=== PATIENT | female | born 1950 | race Caucasian/White ===

== ENCOUNTER 2018-01-10 05:32 | Inpatient (IN) | payer MEDICARE, BC ==
[2018-01-10] MEDS: CEFAZOLIN 2 GM/50 ML (PMX) 50 ML IVPB (06:00)
[2018-01-10] MEDS: LACTATED RINGER'S 1,000 ML IV* (06:00)
[2018-01-10] MEDS ORDERED: POLYMYXIN/BACITRACIN 1L IRRIG (06:47)
[2018-01-10] MEDS ORDERED: POLYMYXIN B 500000 UNIT INJ (07:14)
[2018-01-10] MEDS ORDERED: PROPOFOL 20 ML (07:22)
[2018-01-10] MEDS ORDERED: MIDAZOLAM 1 MG/ML 2 ML INJ (07:31)
[2018-01-10] MEDS ORDERED: FENTAnyl 50 MCG/ML VIAL (07:31)
[2018-01-10] MEDS ORDERED: LIDOCAINE 1% (MDV) 20 ML INJ (07:31)
[2018-01-10] MEDS ORDERED: BUPIVACAINE 0.75%/DEXT (SPINAL) 2 ML INJ (07:31)
[2018-01-10] MEDS ORDERED: PHENYLephrine (100 MCG/ML) 10ML SYG (07:49)
[2018-01-10] MEDS ORDERED: CEFAZOLIN 1 GM INJ (07:54)
[2018-01-10] MEDS: TRANEXAMIC ACID 1,000 MG in NS 100 ML PRE-OP X1 IVPB (08:06)
[2018-01-10] MEDS: POLYMYXIN B 500000 UNIT INJ IRR (08:21)
[2018-01-10] MEDS: BACITRACIN 50000 UNITS INJ IRR (08:21)
[2018-01-10] MEDS: POLYMYXIN/BACITRACIN 1L IRRIG IRR (08:21)
[2018-01-10] MEDS ORDERED: ONDANSETRON 4 MG INJ (09:02)
[2018-01-10] MEDS ORDERED: FAMOTIDINE 20 MG INJ (09:02)
[2018-01-10] MEDS: TRANEXAMIC ACID 1,000 MG in NS 100 ML INTRA-OP X1 IVPB (09:20)
[2018-01-10] MEDS ORDERED: oxyCODONE 5 MG TAB PO (09:30)
[2018-01-10] MEDS ORDERED: HYDROmorphONE 1 MG/5 ML IV SYRINGE IV (09:30)
[2018-01-10] MEDS ORDERED: NA PHOSPHATE/BIPHOS 133 ML ENEMA PR (09:30)
[2018-01-10] MEDS ORDERED: LABETALOL HCL 20MG INJ IV (09:30)
[2018-01-10] MEDS ORDERED: NALOXONE (0.4 MG/ML) INJ IV (09:30)
[2018-01-10] MEDS ORDERED: DIPHENHYDRAMINE 50 MG INJ IV (09:30)
[2018-01-10] MEDS ORDERED: MAGNESIUM HYDROXIDE 30ML CUP PO (09:30)
[2018-01-10] MEDS ORDERED: SENNA/DOCUSATE NA (8.6MG/50MG) TAB PO (09:30)
[2018-01-10] MEDS ORDERED: ZOLPIDEM 5 MG TAB PO (09:30)
[2018-01-10] MEDS ORDERED: NACL 0.9% 3 ML SYG IV (09:30)
[2018-01-10] MEDS ORDERED: BETHANECHOL 25 MG TAB PO (09:30)
[2018-01-10] MEDS ORDERED: hydrALAzine 20 MG INJ IV (09:30)
[2018-01-10] MEDS ORDERED: KETOROLAC 15 MG INJ IV ×2 (09:30→10:00)
[2018-01-10] MEDS ORDERED: ONDANSETRON 4 MG INJ IV (09:30)
[2018-01-10] MEDS ORDERED: BISACODYL 10 MG SUPP PR (09:30)
[2018-01-10] MEDS: ONDANSETRON 4 MG INJ IV ×3 (09:46→20:55)
[2018-01-10] MEDS: DOCUSATE SODIUM 100 MG CAP PO (09:48)
[2018-01-10] MEDS: SOD CHLORIDE 0.9% 1,000 ML IV ×2 (09:49→21:56)
[2018-01-10] MEDS: CEFAZOLIN 1 GM/50 ML (PMX) 50 ML IVPB ×2 (09:49→17:48)
[2018-01-10] MEDS ORDERED: MEPERIDINE 25 MG INJ (10:11)
[2018-01-10] MEDS: MEPERIDINE 25 MG INJ IV (10:37)
[2018-01-10] MEDS ORDERED: DEXTROSE 50% 50 ML SYRINGE IV ×2 (11:00)
[2018-01-10] MEDS ORDERED: GLUCOSE GEL 15 GRAM TUBE PO ×2 (11:00)
[2018-01-10] MEDS ORDERED: GLUCAGON 1 MG INJ IM (11:00)
[2018-01-10] MEDS ORDERED: GLUCOSE GEL 15 GRAM TUBE BUCCAL (11:00)
[2018-01-10] MEDS: INSULIN ASPART [NOVOLOG] 3 ML PEN SC ×3 (11:40→20:59)
[2018-01-10] MEDS: oxyCODONE 5 MG TAB PO ×3 (14:22→23:18)
[2018-01-10] MEDS: metFORMIN 500 MG TAB PO (20:54)
[2018-01-10] MEDS: FERROUS SULFATE (EC) 325 MG TAB PO (20:55)
[2018-01-10] MEDS: ATORVASTATIN 80 MG TAB PO (20:55)
[2018-01-10] MEDS: DOCUSATE SODIUM 250 MG CAP PO (20:55)
[2018-01-10] MEDS: INSULIN GLARGINE [LANtus] 3 ML PEN SC ×2 (20:59→21:00)
[2018-01-10] MEDS: LATANOPROST 0.005% 2.5 ML OPH BOTH EYES (21:57)
[2018-01-11] MEDS: CEFAZOLIN 1 GM/50 ML (PMX) 50 ML IVPB (01:37)
[2018-01-11] MEDS: ACCU-CHEK XX (01:38)
[2018-01-11] MEDS: ONDANSETRON 4 MG INJ IV (03:19)
[2018-01-11] MEDS: oxyCODONE 5 MG TAB PO ×3 (03:20→16:26)
[2018-01-11 05:22] LABS: ADD MAN DIFF? NO
[2018-01-11 05:31] LABS: WHITE BLOOD COUNT 8.9 10^3/ul (4.8-10.8)
[2018-01-11 05:31] LABS: BASOPHILS % 0.4 % (0.0-2.0); EOSINOPHILS # 0.1 10^3/ul (0.0-0.5); EOSINOPHILS % 0.9 % (0.0-7.0); HEMATOCRIT 32.3 % (37.0-47.0); HEMOGLOBIN 10.4 g/dl (12.0-16.0); LYMPHOCYTES % 11.7 % (15.0-51.0); MEAN CORPUSCULAR HEMOGLOBIN 32.9 pg (29.0-33.0); MEAN CORPUSCULAR HGB CONC 32.2 g/dl (32.0-37.0); MEAN CORPUSCULAR VOLUME 102.2 fl (82.0-101.0); MEAN PLATELET VOLUME 11.7 fl (7.4-10.4); MONOCYTE # 0.9 10^3/ul (0.3-0.9); MONOCYTES % 9.7 % (0.0-11.0); NEUTROPHIL # 6.9 10^3/ul (1.6-7.5); PLATELET COUNT 198 10^3/UL (140-415); RED BLOOD COUNT 3.16 10^6/ul (4.20-5.40); RED CELL DISTRIBUTION WIDTH 12.7 % (11.5-14.5)
[2018-01-11 05:44] LABS: ANION GAP 14 (8-16); BLOOD UREA NITROGEN 13 mg/dl (7-20); CALCIUM 8.2 mg/dl (8.4-10.2); CARBON DIOXIDE 28 mmol/L (21-31); CHLORIDE 104 mmol/L (97-110); CREATININE 0.77 mg/dl (0.44-1.00); GLUCOSE 111 mg/dl (70-220); POTASSIUM 3.9 mmol/L (3.5-5.1); SODIUM 142 mmol/L (135-144)
[2018-01-11 05:56] LABS: CHOL/HDL RATIO 2.8 RATIO; HDL CHOLESTEROL 32 mg/dl (35-98); LDL CHOLESTEROL,CALCULATED 37 mg/dl; TRIGLYCERIDES 103 mg/dl (0-149)
[2018-01-11 05:56] LABS: CHOLESTEROL 90 mg/dl (100-200)
[2018-01-11] MEDS: PANTOPRAZOLE (EC) 40 MG TAB PO (06:04)
[2018-01-11 07:24] LABS: HEMOGLOBIN A1C 6.2 % (0-5.9)
[2018-01-11] MEDS: INSULIN ASPART [NOVOLOG] 3 ML PEN SC ×2 (07:50→11:40)
[2018-01-11] MEDS: DOCUSATE SODIUM 100 MG CAP PO (08:48)
[2018-01-11] MEDS: metFORMIN 500 MG TAB PO (08:48)
[2018-01-11] MEDS: FERROUS FUMARATE (SR) TAB PO (08:48)
[2018-01-11] MEDS: LOSARTAN 50 MG TAB PO (08:49)
[2018-01-11] MEDS: NIFEdipine (XL) 30 MG TAB PO (08:49)
[2018-01-11] MEDS: CHOLECALCIFEROL 1,000 UNIT TAB PO (08:50)
[2018-01-11] MEDS: RIVAROXABAN 10 MG TABLET PO (08:51)
[2018-01-11] MEDS ORDERED: CELECOXIB 200 MG CAP PO (09:00)
[2018-01-11] MEDS ORDERED: NON-FORMULARY/PATIENT OWN MED (Omeprazole* 20 MG) PO (09:00)
[2018-01-11] MEDS: FERROUS SULFATE (EC) 325 MG TAB PO (09:00)
[2018-01-11] MEDS: CELECOXIB 100 MG CAP PO (09:50)
[2018-01-11] MEDS ORDERED: MIDAZOLAM 1 MG/ML 2 ML INJ (13:30)
[2018-01-11] MEDS ORDERED: PROPOFOL 20 ML (13:30)
[2018-01-11] MEDS ORDERED: ROCURONIUM 50 MG INJ (13:30)
[2018-01-11] MEDS ORDERED: FENTAnyl 50 MCG/ML VIAL ×2 (13:30→16:25)
[2018-01-11] MEDS ORDERED: LIDOCAINE 1% (MDV) 20 ML INJ (13:31)
[2018-01-11] MEDS ORDERED: BUPIVACAINE 0.75%/DEXT (SPINAL) 2 ML INJ (13:31)
[2018-01-11] MEDS ORDERED: PHENYLephrine (100 MCG/ML) 10ML SYG (14:24)
[2018-01-11] MEDS ORDERED: FAMOTIDINE 20 MG INJ (16:16)
[2018-01-11] MEDS ORDERED: ONDANSETRON 4 MG INJ (16:16)
[2018-01-11] MEDS ORDERED: ROPIVACAINE 0.2% 20 ML VIAL (16:23)
[2018-01-11] MEDS ORDERED: DEXAMETHASONE 4 MG/ML 1 ML INJ (16:24)
[2018-01-11] MEDS ORDERED: FLUMAZENIL 0.5 MG INJ (16:34)
[2018-01-11] MEDS ORDERED: LABETALOL HCL 20MG INJ (16:44)
[2018-01-11] MEDS ORDERED: hydrALAzine 20 MG INJ (16:59)
[2018-01-11] MEDS ORDERED: SUGAMMADEX SODIUM 200 MG/2 ML VIAL IV (17:02)
== END 2018-01-11 17:15 | disposition home health service (06) | DRG 470 ==
LOC: SDS 05:32 → REC 09:26 → MS1 10:42
PROVIDERS: Orthopaedic Surgery
PROC: 0SR904A Replacement of Right Hip Joint with Ceramic on Polyethylene Synthetic Substitute, Uncemented, Open Approach (ICD-10-PCS; principal; 2018-01-10 07:29)
DX: M16.11 Unilateral primary osteoarthritis, right hip (principal); I10 Essential (primary) hypertension; E11.9 Type 2 diabetes mellitus without complications; E78.5 Hyperlipidemia, unspecified; E66.9 Obesity, unspecified; Z68.31 Body mass index [BMI] 31.0-31.9, adult; Z85.3 Personal history of malignant neoplasm of breast; Z79.4 Long term (current) use of insulin; Z79.84 Long term (current) use of oral hypoglycemic drugs; Z79.02 Long term (current) use of antithrombotics/antiplatelets
CPT/HCPCS: 73501; 73530; 80048; 80061; 82962; 83036; 84443; 85025; 86850; 86900; 86901; 87081; 88304; 88311; 97110; 97116; 97161; 97165